=== PATIENT | male | born 1985 | race Caucasian/White ===

== ENCOUNTER 2019-06-07 12:38 | Emergency (ER) | payer OTHER ==
[~2019-06-07] VITALS: Ht 180.3 cm; Wt 99.8 kg
[2019-06-07] MEDS ORDERED: ENALAPRIL MALEAT5 MG PO (12:46)
[2019-06-07] MEDS ORDERED: ASPIR 8181 MG PO (12:46)
== END 2019-06-07 15:44 | disposition home or self-care (01) ==
LOC: ER 12:38
DX: I16.0 Hypertensive urgency (principal); I10 Essential (primary) hypertension; R51 Headache; F06.4 Anxiety disorder due to known physiological condition